=== PATIENT | female | born 1980 | race African-American/Black ===

== ENCOUNTER 2021-08-11 08:38 | Emergency (ER) | payer OTHER, SELFPAY ==
--- NOTE | ~2021-08-11 | US_ITS ---
EXAMINATION: US venous doppler [facility] DATE: 08/11/2021 10:15 INDICATION: Pain and swelling of the left lower limb, recent deep venous thrombosis TECHNIQUE: Yee scale images without and with compression and Doppler images of the left lower extrem ity veins were obtained. COMPARISON: None FINDINGS: Popliteal vein is noncompressible and partially thrombosed. The left common femoral vein, p rofunda femoral vein, femoral vein, peroneal trunk, posterior tibial veins, and greater saphenous vei n are patent. IMPRESSION: 1. Partial thrombosis of the left popliteal vein. These findings were discussed with Shelby Olivares PA-C in the Emergency Department at 1034 hours on 08/11/2021. Reviewed, dictated and finalized at location A. IMPRESSION: 1. Partial thrombosis of the left popliteal vein. These findings were discussed with Shelby Olivares PA-C in the Emergency Depar tment at 1034 hours on 08/11/2021.
[2021-08-11 08:47] VITALS: BP 192/98; PULSE 59; RESP 18; TEMP 36.9; O2SAT 100
--- NOTE | 2021-08-11 09:20 | ED.LOWEXIN ---
HPI - Extremity Injury (Lower) General Chief Complaint: Extremity Injury, Lower <Shelby Olivares PA-C - Last Filed: 08/11/21 11:02> Stated Complaint: leg swelling <MALOU Tello Last Filed: 08/11/21 11:02> Time Seen by Provider: 08/11/21 09:08 <MALOU Tello Last Filed: 08/11/21 11:02> Source: patient <MALOU Tello Last Filed: 08/11/21 11:02> Mode of arrival: ambulatory <MALOU Tello Last Filed: 08/11/21 11:02> Limitations: no limitations <MALOU Tello Last Filed: 08/11/21 11:02> History of Present Illness HPI Narrative: This is a 41-year-old female that presents to the emergency department for left leg pain and swelling. Ongoing over the last 3 weeks. Reports she was seen in outside facility and diagnosed with a DVT. Due to insurance reasons she was not able to get started on Xarelto until yesterday. Reports continued pain and swelling in the leg which prompted her to be seen. She took Ibuprofen this morning for pain. She also reports she was noted to have elevated blood pressure in the ED there and was started on Amlodipine. She has been taking this daily as prescribed. She does not currently have a PCP. Denies fever, chest pain, shortness of breath, or numbness. <MALOU Tello Last Filed: 08/11/21 11:02> Related Data Home Medications: Home Medications Medication Instructions Recorded Confirmed Norvasc 08/11/21 Potassimin 08/11/21 Xarelto 08/11/21 tramadol 08/11/21 08/11/21 <MALOU Tello Last Filed: 08/11/21 11:02> Allergies/Adverse Reactions: Allergies Allergy/AdvReac Type Severity Reaction Status Date / Time sulfamethoxazole Allergy Hives Verified 08/11/21 08:58 [From Bactrim] trimethoprim [From Bactrim] Allergy Hives Verified 08/11/21 08:58 <MALOU Tello Last Filed: 08/11/21 11:02> Review of Systems Review of Systems: CONSTITUTIONAL: Denies fever CARDIOVASCULAR: Reports edema. Denies chest pain RESPIRATORY: Denies dyspnea. SKIN: Denies rash <Shelby Olivares PA-C - Last Filed: 08/11/21 11:02> All systems reviewed & are unremarkable except as noted in HPI and below <Shelby Olivares PA-C - Last Filed: 08/11/21 11:02> [facility] Past Medical History Medical History: Medical History (Updated 08/11/21 @ 10:59 by Shelby Olivares PA-C) History of DVT (deep vein thrombosis) History of hypertension <Shelby Olivares PA-C - Last Filed: 08/11/21 11:02> Social History Social History: Social History (Updated 08/11/21 @ 09:23 by Shelby Olivares PA-C) Smoking status: Never smoker <Shelby Olivares PA-C - Last Filed: 08/11/21 11:02> Exam Narrative: GENERAL: Well-appearing, well-nourished, and in no acute distress. HEAD: Normocephalic, atraumatic. EYES: EOMI. CHEST: Clear to auscultation. No respiratory distress. No wheezes rales or rhonchi HEART: Regular rate and rhythm. No murmur heard. Normal peripheral pulses. EXTREMITIES: Normal range of motion. Mild to moderate edema of the left foot, ankle and calf. Normal sensation. Normal DP pulses SKIN: Warm, dry, no rash. NEURO: No focal deficits. Alert and oriented x3. PSYCH: Normal mood and affect <Shelby Olivares PA-C - Last Filed: 08/11/21 11:02> Course Vital Signs Vital signs: Vital Signs Temperature 98.5 F 08/11/21 08:47 Pulse Rate 59 L 08/11/21 08:47 Respiratory Rate 18 08/11/21 08:47 Blood Pressure 192/98 H 08/11/21 08:47 Pulse Oximetry 100 08/11/21 08:47 Temperature 98.5 F 08/11/21 08:47 Pulse Rate 59 L 08/11/21 08:47 Respiratory Rate 18 08/11/21 08:47 Blood Pressure 192/98 H 08/11/21 08:47 Pulse Oximetry 100 08/11/21 08:47 <Shelby Olivares PA-C - Last Filed: 08/11/21 11:02> MDM - Extremity Injury (Lower) MDM Narrative Medical decision making narrative: Patient presents to the emergency department for left lower extremity pain
[2021-08-11 09:34] LABS: Basophils Absolute Auto 0.1 K/mm3 (0.0-0.1); Basophils Percent Auto 0.9 % (0.2-1.2); Eosinophils Absolute Auto 0.3 K/mm3 (0-0.3); Eosinophils Percent Auto 4.5 % (0-4.4); Hematocrit 36.8 % (37.0-47.0); Hemoglobin 11.9 g/dL (12.0-15.0); Immature Granulocyte Absolute 0.02 K/mm3 (0.00-0.031); Immature Granulocyte Percent A 0.3 % (0-0.5); Lymphocytes Absolute Auto 1.96 K/mm3 (0.9-3.2); Lymphocytes Percent Auto 30.7 % (18.3-44.2); Mean Corpuscular HGB Conc 32.3 g/dl (32-36); Mean Corpuscular Volume 89.5 fl (80-100); Mean Platelet Volume 10.5 fl (7.4-10.4); Monocytes Absolute Auto 0.3 K/mm3 (0.1-0.6); Monocytes Percent Auto 4.9 % (2.6-8.5); Neutrophils Absolute Auto 3.7 K/mm3 (1.3-6.7); Neutrophils Percent Auto 58.7 % (45.5-73.1); Platelet Count Result 278 k/mm3 (150-375); Red Blood Count 4.11 M/mm3 (4.2-5.4); Red Cell Distribution Width 13.2 % (11.5-14.5); White Blood Count 6.4 K/mm3 (4.5-10.0)
[2021-08-11 09:46] LABS: Alanine Aminotransferase 19 U/L (4-35); Albumin Level 3.1 g/dL (3.5-5.1); Alkaline Phosphatase 65 U/L (38-126); Anion Gap 0 mmol/L (8-16); Aspartate Amino Transferase 27 U/L (14-36); Bilirubin,Total 0.3 mg/dL (0.2-1.3); Blood Urea Nitrogen 15 mg/dL (7-17); Calcium 8.1 mg/dL (8.4-10.2); Carbon Dioxide 27 mmol/L (22-30); Chloride 107 mmol/L (98-107); Estimated CRCL calculation 70 ml/min; Estimated Glomerular Filt Rate > 60; Glucose 154 mg/dL (65-110); Potassium 3.7 mmol/L (3.4-5.0); Sodium 134 mmol/L (137-145)
[2021-08-11 10:09] LABS: Hemoglobin A1C 6.9 % (<5.7)
[2021-08-11] MEDS: cloNIDine HCL 0.1 MG TABLET PO (10:19)
== END 2021-08-11 11:22 | disposition home or self-care (01) ==
PROVIDERS: Physician Assistant; Emergency Provider Emergency Medicine
DX: I82.432 Acute embolism and thrombosis of left popliteal vein (principal); I10 Essential (primary) hypertension; E11.9 Type 2 diabetes mellitus without complications; Z79.01 Long term (current) use of anticoagulants; Z79.84 Long term (current) use of oral hypoglycemic drugs
CPT/HCPCS: 36415; 80053; 83036; 85025; 93971; 99284; A9270

== ENCOUNTER 2021-12-29 07:59 | Emergency (ER) | payer OTHER, SELFPAY ==
[2021-12-29] VITALS (14 sets, daily range): BP systolic 177–227; BP diastolic 92–140; PULSE 87–115; RESP 9–25; TEMP 36; O2SAT 99–100
--- NOTE | ~2021-12-29 | CT_ITS ---
EXAMINATION: CT abdomen pelvis w con DATE: 12/29/2021 09:21 INDICATION: Right lower quadrant abdominal pain. TECHNIQUE: Computed tomography (CT) of the abdomen and pelvis was performed with 100 mL Omnipaque 350 intravenous contrast. Automated exposure control and iterative reconstruction technique were employe d. The dose-length product was 960.49 mGy-cm. COMPARISON: None. FINDINGS: The visualized portions of the lung bases are clear without pneumonia or pleural effusion. The heart size is normal. No pericardial effusion. There is an 11 mm cyst in the liver. The gallbladd er, spleen, pancreas, adrenal glands, and kidneys are normal. There are no dilated loops of bowel. Th e appendix is normal. There are no pathologically enlarged lymph nodes. There is no free intraperiton eal fluid. There is mild lumbar spondylosis. IMPRESSION: 1. No etiology for the patient's symptoms. Reviewed, dictated and finalized at location A.
[2021-12-29 08:41] LABS: Basophils Percent Auto 0.3 % (0.2-1.2); Eosinophils Percent Auto 0.1 % (0-4.4); Hematocrit 40.9 % (37.0-47.0); Hemoglobin 14.5 g/dL (12.0-15.0); Immature Granulocyte Absolute 0.04 K/mm3 (0.00-0.031); Immature Granulocyte Percent A 0.3 % (0-0.5); Lymphocytes Absolute Auto 2.68 K/mm3 (0.9-3.2); Lymphocytes Percent Auto 21.5 % (18.3-44.2); Mean Corpuscular HGB Conc 35.5 g/dl (32-36); Mean Corpuscular Hemoglobin 28.9 pg (26-34); Mean Corpuscular Volume 81.5 fl (80-100); Mean Platelet Volume 10.8 fl (7.4-10.4); Monocytes Absolute Auto 0.6 K/mm3 (0.1-0.6); Monocytes Percent Auto 4.4 % (2.6-8.5); Neutrophils Absolute Auto 9.2 K/mm3 (1.3-6.7); Neutrophils Percent Auto 73.4 % (45.5-73.1); Platelet Count Result 408 k/mm3 (150-375); Red Blood Count 5.02 M/mm3 (4.2-5.4); Red Cell Distribution Width 12.5 % (11.5-14.5); White Blood Count 12.5 K/mm3 (4.5-10.0)
[2021-12-29 08:54] LABS: Alanine Aminotransferase 27 U/L (6-35); Albumin Level 4.1 g/dL (3.5-5.1); Alkaline Phosphatase 83 U/L (38-126); Anion Gap 6 mmol/L (8-16); Aspartate Amino Transferase 33 U/L (14-36); Bilirubin,Total 1.6 mg/dL (0.2-1.3); Blood Urea Nitrogen 23 mg/dL (7-17); Calcium 8.6 mg/dL (8.4-10.2); Carbon Dioxide 22 mmol/L (22-30); Chloride 102 mmol/L (98-107); Estimated CRCL calculation 56 ml/min; Estimated Glomerular Filt Rate 50; Glucose 251 mg/dL (65-110); Lipase 75 U/L (23-300); Potassium 2.8 mmol/L (3.4-5.0); Sodium 130 mmol/L (137-145)
--- NOTE | 2021-12-29 09:04 | ED.NAVMDI ---
HPI - Nausea/Vomiting/Diarrhea General Chief complaint: Nausea/Vomiting/Diarrhea Stated complaint: nausea and vomiting x 4 days Time Seen by Provider: 12/29/21 08:56 History of Present Illness HPI Narrative: 41-year-old female with a history of hypertension and diabetes presents emergency room for evaluation of nausea and vomiting for 4 days. Patient states that she has also been constipated until this morning, where she had a large watery stool. Patient denies fever. Patient is also complaining of right lower quadrant pain that began this morning. Admits to being unable to take her medications since . Related Data Home Medications Medication Instructions Recorded Confirmed Norvasc 08/11/21 Potassimin 08/11/21 Xarelto 15 mg BID 08/11/21 tramadol 08/11/21 08/11/21 Allergies Allergy/AdvReac Type Severity Reaction Status Date / Time sulfamethoxazole Allergy Hives Verified 12/29/21 08:00 [From Bactrim] trimethoprim [From Bactrim] Allergy Hives Verified 12/29/21 08:00 Review of Systems Review of Systems: CONSTITUTIONAL: Denies fever, chills, or sweats. EYES: Denies visual changes, redness, or discharge. ENT: Denies rhinorrhea, congestion, sore throat, or otalgia. CARDIOVASCULAR: Denies chest pain, palpitations, or edema. RESPIRATORY: Denies cough or dyspnea. GASTROINTESTINAL: Reports abdominal pain, nausea, vomiting, and diarrhea. GENITOURINARY: Denies dysuria or hematuria. SKIN: Denies rash or itching. MUSCULOSKELETAL: Denies back pain, joint pain, or myalgia. NEUROLOGIC: Denies headache, numbness, dizziness, or weakness. PSYCHIATRIC: Denies anxiety or depression. PMFSH Past Medical History Medical History History of DVT (deep vein thrombosis) History of hypertension Social History Social History Smoking status: Never smoker Exam Narrative: GENERAL: Well-appearing, well-nourished, no physical limitations, and in no acute distress. HEAD: Normocephalic, atraumatic. EYES: Conjunctivae normal, PERRLA and EOMI. CHEST: Clear to auscultation. No respiratory distress. No wheezes rales or rhonchi. No tenderness. HEART: Regular rate and rhythm. No murmur heard. Normal peripheral pulses. ABDOMEN: Soft, right lower quadrant tenderness, nondistended, normal active bowel sounds. BACK: No CVA tenderness EXTREMITIES: Normal range of motion. No edema. No clubbing or cyanosis SKIN: Warm, dry, no rash. No noted wounds NEURO: No focal deficits. Alert and oriented x3. MAEW. CN's II-XI intact bilaterally, normal gait PSYCH: Cooperative. Normal mood and affect. Course Vital Signs Vital signs: Vital Signs Temperature 36.0 C L 12/29/21 08:02 Pulse Rate 115 H 12/29/21 08:02 Respiratory Rate 20 12/29/21 08:02 Blood Pressure 203/120 H 12/29/21 08:02 Pulse Oximetry 100 12/29/21 08:02 Oxygen Delivery Room Air 12/29/21 08:02 Temperature 36.0 C L 12/29/21 08:02 Pulse Rate 100 12/29/21 13:30 Respiratory Rate 20 12/29/21 13:30 Blood Pressure 190/102 H 12/29/21 13:30 Pulse Oximetry 100 12/29/21 13:30 Oxygen Delivery Room Air 12/29/21 08:02 MDM - Nausea/Vomiting/Diarrhea MDM Narrative Medical decision making narrative: 41-year-old female presented to the emergency room complaints of nausea vomiting 5 days of constipation. Patient had lower abdominal pain. Her exam was without any peritoneal signs. Per CT scan, there is no evidence of acute abdomen at this time. Patient was hypertensive and tachycardic on arrival. States that she had stopped taking her pressure prescription medications. Initial potassium was 2.8 patient, patient was given oral potassium. Follow-up be MP, her potassium was 3.0. Initial blood sugar was 251. Patient was given 2 L of fluid and antiemetics. Patient was also given 5 mg of metoprolol and 20 of hydralazine. Blood pressures remaine
[2021-12-29 09:15] LABS: Magnesium 1.9 mg/dL (1.6-2.3)
[2021-12-29] MEDS: ONDANSETRON INJ 4 MG/2 ML VIAL IV PUSH (09:41)
[2021-12-29] MEDS: SODIUM CHLORIDE 0.9% IV 1,000 ML 999 ML IV CONT ×2 (09:42→09:59)
[2021-12-29] MEDS: hydrALAZINE HCL 20 MG/ML VIAL IV PUSH (09:59)
[2021-12-29] MEDS: PROMETHAZINE HCL 25 MG/ML AMPUL 12.5 MG IV PUSH (10:37)
[2021-12-29] MEDS: POTASSIUM CHLORIDE 20 MEQ PACKET (FOR LIQUID) 40 MEQ PO (10:58)
[2021-12-29] MEDS: METOPROLOL TARTRATE INJ 5 MG/5 ML VIAL IV PUSH (11:20)
[2021-12-29 12:16] LABS: Anion Gap 5 mmol/L (8-16); Blood Urea Nitrogen 22 mg/dL (7-17); Calcium 7.5 mg/dL (8.4-10.2); Carbon Dioxide 27 mmol/L (22-30); Chloride 103 mmol/L (98-107); Estimated CRCL calculation 56 ml/min; Estimated Glomerular Filt Rate 50; Glucose 251 mg/dL (65-110); Sodium 135 mmol/L (137-145)
[2021-12-29 12:36] LABS: Appearance Urine Clear (Clear); Bilirubin Urine Negative (Negative); Blood Urine 2+ (Negative); Color Urine Yellow (Yellow); Glucose Urine UA 1+ mg/dL (Negative); Ketones Urine 1+ mg/dL (Negative); Leukocyte Esterase Ur Negative LEU/UL (Negative); Nitrate Urine Negative (Negative); Protein Urine 3+ mg/dL (Negative); Specific Grav Ur 1.015 (1.001-1.035); pH Urine 6.5 (5.0-9.0)
[2021-12-29 12:44] LABS: Mucus Urine Rare /lpf; Squamous Epithelial Cell Urine Occasional /hpf (Few)
[2021-12-29 12:45] LABS: Add Urine Microscopic? YES
== END 2021-12-29 13:30 | disposition home or self-care (01) ==
PROVIDERS: Emergency Medicine; Emergency Provider Nurse Practitioner Family
DX: R11.2 Nausea with vomiting, unspecified (principal); K59.00 Constipation, unspecified; E11.65 Type 2 diabetes mellitus with hyperglycemia; I10 Essential (primary) hypertension; E87.6 Hypokalemia; Z86.718 Personal history of other venous thrombosis and embolism; Z79.01 Long term (current) use of anticoagulants; Z79.84 Long term (current) use of oral hypoglycemic drugs
CPT/HCPCS: 36415; 74177; 80048; 80053; 81001; 81025; 83690; 83735; 85025; 87077; 87086; 87088; 96361; 96374; 96375; 99284; A9270; J0360; J2405; J2550; J7030; Q9967